=== PATIENT | male | born 1990 | race Caucasian/White ===

== ENCOUNTER 2021-04-19 15:22 | Emergency (ER) | payer OTHER ==
[~2021-04-19] VITALS: Ht 172.7 cm; Wt 59.0 kg
[2021-04-19 15:30] VITALS: BP 126/65
--- NOTE | 2021-04-19 15:30 | NUR ---
PT PAIN IN DORSAL ASPECT OF R FOOT X 2 YEARS. PT A/OX4. TOLERATING R/A WELL WITH NO SOB. AMB WITH STEADY GAIT
[2021-04-19] MEDS ORDERED: KETOROLAC TROMETHAMINE INJ 60 MG/2 ML VIAL IM ONE (16:00)
[2021-04-19] MEDS ORDERED: KETOROLAC TROMETHAMINE INJ 30 MG/ML VIAL ONE (16:11)
[2021-04-19] MEDS ORDERED: TRAM50TA2 PO (16:26)
[2021-04-19] MEDS ORDERED: NAPR-1164 PO (16:26)
--- NOTE | 2021-04-19 16:37 | NUR ---
Patient discharged to home in stable condition. Patient was provided with a CD as well as prescription. Written and verbal after care instructions given. Patient verbalizes understanding of instruction.
== END 2021-04-19 16:39 | disposition home or self-care (01) ==
LOC: ER 15:32
DX: M79.671 Pain in right foot (principal); Z79.891 Long term (current) use of opiate analgesic; Z79.1 Long term (current) use of non-steroidal anti-inflammatories (NSAID); Z60.2 Problems related to living alone
CPT/HCPCS: 73630; 96372; 99283; J1885